=== PATIENT | female | born 1995 | race Caucasian/White ===

== ENCOUNTER 2023-10-21 04:53 | Emergency (ER) | payer MEDICARE, OTHER, SELFPAY ==
[2023-10-21 04:55] VITALS: BP 122/75
[2023-10-21 05:31] VITALS: BMI 27.6
[2023-10-21 05:57] VITALS: BP 114/82
[2023-10-21 06:00] VITALS: BP 108/76
[2023-10-21 06:06] LABS: ALT (SGPT) 22 U/L (0-35); AST (SGOT) 30 U/L (14-36); Albumin 4.3 g/dl (3.5-5.0); Alkaline Phosphatase 42 U/L (38-126); Blood Urea Nitrogen 15 mg/dl (7-17); Calcium 8.8 mg/dl (8.4-10.2); Carbon Dioxide 27 mmol/L (22-30); Chloride 105 mmol/L (98-107); Estimated Creatinine Clearance 116 ml/min; Glucose 96 mg/dl (70-99); Potassium 4.5 mmol/L (3.5-5.1); Sodium 135 mmol/L (135-145); Total Bilirubin 0.3 mg/dl (0.2-1.3); Total Protein 6.8 g/dl (6.3-8.2); eGFR > 60.00
--- NOTE | 2023-10-21 06:10 | ED.GENMED ---
History of Present Illness
General
Chief Complaint: Vaginal Bleeding
Source: patient and family
Exam Limitations: none
Time Seen by Provider: 10/21/23 06:04
Nursing documentation reviewed up to this point in time: agreed with
Travel History
Have you had any contact with someone who has COVID-19?: No
Do you have any symptoms of coronavirus? Fever > 100 degrees, chills, cough, shortness of breath, sore throat, loss of taste or smell, muscle aches, or headache?: No
History of Present Illness
History of Present Illness:
28 female 4 weeks presents with cramping and bleeding since yesterday's appointment see the [facility] next week
Past History
Past History
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
hypokalemia); Negative Asthma, HTN, Hypercholesterolemia or NIDDM
ED Past Surgical History: Appendectomy and Other
Social History
Tobacco: Non-smoker
Alcohol: Occasional
Drug: None
Personal: Single
Living: with family
Employment: Not employed
Family History
Family History: CAD and Other
Review of Systems
Review of Systems
All Other Systems: Not applicable
: Reports bleeding
Phy Exam
Physical Exam
Physical Exam:
Physical Exam
General: no apparent distress, not acutely ill
Neck: No jaw
Lungs: no acute respiratory distress.
Abdomen: Soft nontender
Neuro: alert and oriented. no focal neurological deficits
Skin: no rash
Psychiatric: well kept. interactive and cooperative
Extremities: no edema.
Course
Orders/Labs/Results
Orders:
Orders
10/21/23 05:42
Blood Group&Type Urgent
CMP [Comprehensive Metabolic Panel] Urgent
Complete Blood Count/With Diff Urgent
HCG,SERUM [Beta HCG Quantitative] Urgent
Is this a screen?: No
10/21/23 06:12
0.9% Sodium Chloride 1000 ml [Nss] 1,000 ml IV BOLUS
10/21/23 06:13
US W Transvaginal Urgent
Reason For Exam: pvb
Abnormal Lab Results
10/21/23
05:42
MPV 10.7 H fL
(7.4-10.4)
Monocytes % 9.4 H %
(1.7-9.3)
Eosinophils % 6.9 H %
(0-6)
10/21/23 05:42
10/21/23 05:42
Vital Signs
Initial and Last Documented VS:
Initial Vital Signs
Temp Pulse Resp BP Pulse Ox
97.7 F 55 16 122/75 100
10/21/23 04:55 10/21/23 04:55 10/21/23 04:55 10/21/23 04:55 10/21/23 04:55
Last Documented Vital Signs
Temp Pulse Resp BP Pulse Ox
97.7 F 55 16 113/76 100
10/21/23 04:55 10/21/23 04:55 10/21/23 04:55 10/21/23 09:13 10/21/23 09:15
MDM/Problems Addressed
Differential Diagnosis Includes:
ABD miscarriage ectopic early
MDM/Problems Addressed:
bleeding
*Critical Care Note
Total Time (30-74mins, 75-104mins- exclusive of procedures): Not Applicable
Update Note
Update Note:
7:53 AM type and Rh and beta quant noted
9:20 AM ultrasound report noted patient states her bleeding is improved reviewed with patient likely completed AB versus chemical tells me she had a positive test earlier this week at the doctor's office
ED Attending Note
-
Portions of this chart may have been created with voice recognition software.� Occasional wrong word or��sound alike� substitutions may have occurred due to the inherent limitations of voice recognition software.
Discharge Plan
Departure
Patient Disposition: Home (Routine Discharge)
Date of Disposition: 10/21/23
Time of Disposition: :22
Patient with high blood pressure during this ER visit?: No
Condition: Good
Discharge Problem:
Complete miscarriage
Instructions: Miscarriage (DC)
Prescriptions:
No Action
venlafaxine [Effexor XR] 150 MG capsule,extended release 24hr
325 mg PO DAILY
fexofenadine [Ary] 180 MG tablet
180 mg PO DAILY
gabapentin 300 MG capsule
900 mg PO HS
ferrous sulfate [FeroSul] 325 MG tablet
1 tab PO BID
multivitamin with folic acid [Tab-A-Jong] 1 TABLET tablet
1 tab PO DAILY
gabapentin 300 MG capsule
300 mg PO .QAM
spironolactone 50 MG tablet
50 mg PO DAILY
potassium chloride [Klor-Con M20] 20 MEQ tablet,ER particles/crystals
80 meq PO TID
levothyroxine 50 MCG tablet
50 mcg PO MOTUWETHFR
Patient Comments:
cyanocobalamin (vitamin B-12) 1,000 MCG tablet
1,000 mcg PO DAILY
cholecalciferol (vitamin D3) 1,000 UNITS tablet
2,000 units PO DAILY
alprazolam 0.5 MG tablet
0.5 mg PO Q6HPRN PRN (Reason: anxiety)
metaxalone 800 mg tablet
800 mg PO TID PRN (Reason: muscle pain) Qty: 20 0RF
Referrals:
Yamilex Mcfarland PA-C [Family Provider] - Next open appointment
Activity Restrictions/Additional Instructions:
Tylenol or ibuprofen for pain
Return to the ER if heavy bleeding or fever
Keep your appointment with your HEATING AND REFRIGERATION INSPECTOR
Interventions
Interventions:
*Risk Screen - Suicide Last Done: 10/21/23 04:55
*General Assessment Last Done: 10/21/23 05:31
*Neglect/Abuse Screening Last Done: 10/21/23 04:55
ED- Fall Risk Assessment Last Done: 10/21/23 04:55
*ED COVID-19 Vaccine History Last Done: 10/21/23 04:55
ED-Female Genitourinary Assessment Last Done: 10/21/23 05:32
Discharge Date and Time
Print Language: EQUATORIAL GUINEAN
[2023-10-21 06:14] LABS: % Basophils 0.6 % (0-2); % Eosinophils 6.9 % (0-6); % Immature Granulocytes 0.4 % (0-0.5); % Lymphocytes 25.1 % (20.5-51.1); % Monocytes 9.4 % (1.7-9.3); % Neutrophils 57.6 % (42.2-75.2); Absolute Eosinophils 0.4 10^3/uL (0-0.7); Absolute Lymphocytes 1.3 10^3/uL (1.2-3.4); Absolute Monocytes 0.5 10^3/uL (0.1-0.6); Absolute Neutrophils 2.9 10^3/uL (1.4-6.5); Hematocrit 40.9 % (37.0-47.0); Hemoglobin 13.9 g/dL (12.0-16.0); Mean Corpuscular Hgb 30.2 pg (27.0-31.0); Mean Corpuscular Volume 88.7 fL (81.0-99.0); Mean Platelet Volume 10.7 fL (7.4-10.4); Nucleated Red Blood Cells % 0 %; Platelet Count 210 10^3/uL (130-400); Red Blood Cell Count 4.61 10^6/uL (4.20-5.40); Red Cell Dist. Width 12.1 % (11.5-14.5); White Blood Cell Count 5.1 10^3/uL (4.8-10.8)
[2023-10-21] MEDS: NSS 1000 IV (06:31)
[2023-10-21 06:57] LABS: Beta HCG Quantitative < 2.39 mIU/ml
[2023-10-21 07:00] VITALS: BP 97/61
[2023-10-21 09:13] VITALS: BP 113/76
[2023-10-21] MEDS: MOTRIN 600 MG PO (09:53)
[2023-10-21 09:54] VITALS: BP 120/74
== END 2023-10-21 10:02 | disposition home or self-care (01) ==
LOC: EMR 04:53
PROVIDERS: Emergency Medicine; EMERGENCY PHYSICIAN Emergency Medicine; FAMILY PHYSICIAN Physician Assistant Medical
DX: O03.9 Complete or unspecified spontaneous abortion without complication (principal); G90.A Postural orthostatic tachycardia syndrome [POTS]; K21.9 Gastro-esophageal reflux disease without esophagitis; J45.909 Unspecified asthma, uncomplicated; K58.9 Irritable bowel syndrome, unspecified; M79.7 Fibromyalgia; E03.9 Hypothyroidism, unspecified; F41.9 Anxiety disorder, unspecified; F32.A Depression, unspecified; Z88.0 Allergy status to penicillin; Z88.2 Allergy status to sulfonamides; Z88.8 Allergy status to other drugs, medicaments and biological substances; Z91.048 Other nonmedicinal substance allergy status
CPT/HCPCS: 99284; 76801; 76817; 80053; 84702; 85025; 86900; 86901

== ENCOUNTER → 2024-05-15 07:06 | Outpatient (REF) | payer MEDICARE, OTHER, SELFPAY | LOC: MRI 07:06 | PROVIDERS: ATTENDING PHYSICIAN Orthopaedic Surgery | DX: M79.642 Pain in left hand (principal); M79.645 Pain in left finger(s) | CPT/HCPCS: 73218 ==

== ENCOUNTER 2025-03-23 15:53 | Observation (INO) | payer MEDICARE, OTHER, SELFPAY ==
[2025-03-23] VITALS (8 sets, daily range): BP systolic 99–125; BP diastolic 58–81; BMI 24.6
--- NOTE | 2025-03-23 09:59 | ED.GENMED ---
History of Present Illness
<ERA Worthington - Last Filed: 03/23/25 13:29>
General
Chief Complaint: Change in Mental Status
Source: patient
Exam Limitations: none
Time Seen by Provider: 03/23/25 09:41
Nursing documentation reviewed up to this point in time: agreed with
History of Present Illness
History of Present Illness:
29-year-old female with past medical history of Gitelman syndrome, POTS, questionable focal seizures ,, fibromyalgia presents to the ER for evaluation of confusion. Patient reports around 8 AM she was on the treadmill and suddenly fell confused.
She could not remember what she was doing or why she was there. She could not remember this morning's events. She called her mom and mom brought patient to the ER. She had no associated upper or lower extremity numbness tingling weakness. No
speech changes. She reports now she feels kind of in a brain fog. She still feels lightheaded sometimes. She reports for the past week she has had a headache which she thought was a tension headache had some neck discomfort. She had a little
congestion and had a mild sore throat.
Patient denies any recent trauma head injury. She reports she did have small amount of breakfast this morning.
She only drinks alcohol socially none recently.
Patient states that she used to have a neurologist Dr. Ceballos for questionable focal seizure diagnosis however has not had any issues with that recently. She was never on medicine for seizures.
Past History
<ERA Worthington - Last Filed: 03/23/25 13:29>
Past History
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
hypokalemia); Negative Asthma, HTN, Hypercholesterolemia or NIDDM
ED Past Surgical History: Appendectomy and Other
Social History
Tobacco: Non-smoker
Alcohol: Occasional
Drug: None
Personal: Single
Living: with family
Employment: Not employed
Family History
Family History: CAD and Other
Phy Exam
<ERA Worthington - Last Filed: 03/23/25 13:29>
General Physical Exam
General Presentation: no apparent distress
General age: appears stated age
General Skin: warm and dry
General Habitus: normal
General Mental: alert
General Hydration: appears well hydrated
ENT Exam
ENT Exam: EOMI
Eye Exam
Eye Exam: PERRL, EOMI and other (No nystagmus)
Cardiovascular Exam
Cardiovascular Exam: regular rate/rhythm, no murmur and normal peripheral pulses
Pulmonary Exam
Pulmonary Exam: lungs clear and no respiratory distress
Neurological Exam
Neurological Exam: alert, oriented x3, no motor deficits and no sensory deficits
[place] Coma Scale
Eye Opening: Spontaneous
Verbal Response: Oriented
Motor Response: Obeys Commands
GCS Total Score: 15
Musculoskeletal Exam
Musculoskeletal Exam: full ROM
Skin Exam
Skin Exam: normal color and warm/dry
Psychiatric Exam
Psychiatric Exam: normal mood/affect
<Elver Solis MD - Last Filed: 03/23/25 13:34>
[place] Coma Scale
GCS Total Score: 15
Course
<ERA Worthington - Last Filed: 03/23/25 13:29>
Orders/Labs/Results
Orders:
Orders
03/23/25 09:58
CT Head W/o Iv Contrast Urgent
Comment:
Reason For Exam: change in ms
03/23/25 09:59
Electrocardiogram (*1) Stat
Reason for Study: Abdominal Pain
Cardiac Monitoring- Treatment ONCE
EKG- Treatment ONCE
IV Insert/Care/Rem.- Treatment PRN
0.9% Sodium Chloride 1000 ml [Nss] 1,000 ml IV BOLUS
Test Result ONCE
03/23/25 10:31
Basic Metabolic Panel Urgent
Complete Blood Count/With Diff Urgent
HCG, Serum Qualitative Screen Urgent
03/23/25 10:50
COVID-19 Antigen Urgent
Source: Nasal Swab
Influenza A+B Rapid Molecular Urgent
ERASMO Source: Nasal Swab
Specimen Description:
03/23/25 10:52
Urinalysis Reflex To Culture Urgent
Date Specimen was Collected: 03/23/25
Time Specimen was Collected: 10:52
03/23/25 11:40
Add On- LAB Urgent
Tests Added?: [email or web address]
03/23/25 11:52
Magnesium Urgent
Comment: ADD ON
Potassium Urgent
03/23/25 13:16
Potassium Chloride [KCl] 40 meq PO NOW STA
Potassium Chloride [KCl] 40 meq 0.9% Sodium Chloride 250 ml [Nss] 250 ml IV NOW
03/23/25 13:19
Magnesium Sulfate 2 Gram/50 ml [Magnesium Sulfate] 2 gram in 50 ml IV NOW
Abnormal Lab Results
03/23/25 03/23/25
10:31 11:52
Monocytes % 10.4 H %
(1.7-9.3)
Eosinophils % 6.6 H %
(0-6)
Sodium 128 L mmol/L
(135-145)
Potassium 2.9 L mmol/L
(3.5-5.1)
Magnesium 1.4 L mg/dl
(1.6-2.3)
03/23/25 10:31
03/23/25 11:52
Vital Signs
Initial and Last Documented VS:
Initial Vital Signs
Temp Pulse Resp BP Pulse Ox
98.3 F 55 17 125/81 99
03/23/25 08:45 03/23/25 08:45 03/23/25 08:45 03/23/25 08:45 03/23/25 08:45
Last Documented Vital Signs
Temp Pulse Resp BP Pulse Ox
98.3 F 43 18 105/68 99
03/23/25 08:49 03/23/25 12:00 03/23/25 11:45 03/23/25 12:00 03/23/25 10:16
Embroidery Operator consulted with Physician
Embroidery Operator consulted with physician?: Yes
Name of Physician Consulted: Will
<Elver Solis MD - Last Filed: 03/23/25 13:34>
Orders/Labs/Results
Orders:
Orders
03/23/25 09:58
CT Head W/o Iv Contrast Urgent
Comment:
Reason For Exam: change in ms
03/23/25 09:59
Electrocardiogram (*1) Stat
Reason for Study: Abdominal Pain
Cardiac Monitoring- Treatment ONCE
EKG- Treatment ONCE
IV Insert/Care/Rem.- Treatment PRN
0.9% Sodium Chloride 1000 ml [Nss] 1,000 ml IV BOLUS
Test Result ONCE
03/23/25 10:31
Basic Metabolic Panel Urgent
Complete Blood Count/With Diff Urgent
HCG, Serum Qualitative Screen Urgent
03/23/25 10:50
COVID-19 Antigen Urgent
Source: Nasal Swab
Influenza A+B Rapid Molecular Urgent
ERASMO Source: Nasal Swab
Specimen Description:
03/23/25 10:52
Urinalysis Reflex To Culture Urgent
Date Specimen was Collected: 03/23/25
Time Specimen was Collected: 10:52
03/23/25 11:40
Add On- LAB Urgent
Tests Added?: [email or web address]
03/23/25 11:52
Magnesium Urgent
Comment: ADD ON
Potassium Urgent
03/23/25 13:16
Potassium Chloride [KCl] 40 meq PO NOW STA
Potassium Chloride [KCl] 40 meq 0.9% Sodium Chloride 250 ml [Nss] 250 ml IV NOW
03/23/25 13:19
Magnesium Sulfate 2 Gram/50 ml [Magnesium Sulfate] 2 gram in 50 ml IV NOW
Abnormal Lab Results
03/23/25 03/23/25
10:31 11:52
Monocytes % 10.4 H %
(1.7-9.3)
Eosinophils % 6.6 H %
(0-6)
Sodium 128 L mmol/L
(135-145)
Potassium 2.9 L mmol/L
(3.5-5.1)
Magnesium 1.4 L mg/dl
(1.6-2.3)
03/23/25 10:31
03/23/25 11:52
Vital Signs
Initial and Last Documented VS:
Initial Vital Signs
Temp Pulse Resp BP Pulse Ox
98.3 F 55 17 125/81 99
03/23/25 08:45 03/23/25 08:45 03/23/25 08:45 03/23/25 08:45 03/23/25 08:45
Last Documented Vital Signs
Temp Pulse Resp BP Pulse Ox
98.3 F 43 18 105/68 99
03/23/25 08:49 03/23/25 12:00 03/23/25 11:45 03/23/25 12:00 03/23/25 10:16
<ERA Worthington - Last Filed: 03/23/25 13:29>
MDM/Problems Addressed
Differential Diagnosis Includes:
Not limited to electrolyte abnormality, less likely TIA
MDM/Problems Addressed:
As documented patient is a 29-year-old female with history of Gitelman syndrome years ago has not needed to see nephrology recently as her electrolytes have been normal. She presented today for an episode of confusion. As document she was on the
treadmill at the gym and cannot member why she was there and cannot remember this morning. She presented awake alert no acute distress with no neurological deficits. She does have a history of questionable focal seizures however again has not seen
neurology in years and is not on medicine. No seizure activity today. Patient presents with abnormal electrolytes sodium low at 128 potassium of 2.9 with a low magnesium 1.4. No EKG changes. Case discussed ED physician evaluated patient case
discussed with nephrology will order IV and oral potassium along with magnesium will admit for overnight lab recheck/continued monitoing.
Chronic conditions affecting care:
History of Gitelman syndrome
<ERA Worthington - Last Filed: 03/23/25 13:29>
*Radiology
Radiology exam reviewed: radiology read reviewed
*Pulse Oximetry
SaO2: 98
Oxygen Mode of Delivery: Room air
Patient hypoxic: no
*EKG
Interpreted by ED Provider?: Yes
Heart Rate: 52
Rate: normal
Rhythm: sinus
Ischemia: non-specific ST changes
*Critical Care Note
Total Time (30-74mins, 75-104mins- exclusive of procedures): Not Applicable
ED Attending Note
<ERA Worthington - Last Filed: 03/23/25 13:29>
-
Portions of this chart may have been created with voice recognition software.� Occasional wrong word or��sound alike� substitutions may have occurred due to the inherent limitations of voice recognition software.
<Elver Solis MD - Last Filed: 03/23/25 13:34>
ED Attending Note
Patient seen and examined by attending physician: Yes
I performed the substantive portion of visit, reviewed & personally made and approve the management plan that is documented in note by myself or TIMOTHY.: Yes
ED Attending Note:
29-year-old female episode of confusion or fogginess while working out today. Has had a few other episodes this week. Also complaining of some general headache. No double vision no speech issues no other complaints. Patient has a syndrome that
causes low potassium low magnesium and low sodium. Gettleman syndrome. On exam patient is nontoxic in no distress. Normocephalic atraumatic. No respiratory distress heart regular rate and rhythm. Warm and dry. Perfusing well. Nonfocal. No
nystagmus. Extraocular muscles intact. Clinically stable. Doubt seizure issues. Does have some electrolyte abnormalities that need addressing. Will discuss with nephrology.
Discharge Plan
Departure
Patient Disposition: Admit
Date of Disposition: 03/23/25
Time of Disposition: 13:26
Admit to: Telemetry
Admit to doctor: hospitalist
Presentation/result/management discussed w/ accepting MD/DO: Hospitalist
Patient with high blood pressure during this ER visit?: No
Condition: Fair
Covid-19: Not Applicable
Discharge Problem:
Acute hypokalemia, Hypomagnesemia, Acute hyponatremia
Prescriptions:
No Action
venlafaxine [Effexor XR] 150 MG capsule,extended release 24hr
325 mg PO DAILY
fexofenadine [Ary] 180 MG tablet
180 mg PO DAILY
gabapentin 300 MG capsule
900 mg PO HS
ferrous sulfate [FeroSul] 325 MG tablet
1 tab PO BID
multivitamin with folic acid [Tab-A-Jong] 1 TABLET tablet
1 tab PO DAILY
gabapentin 300 MG capsule
300 mg PO .QAM
spironolactone 50 MG tablet
50 mg PO DAILY
potassium chloride [Klor-Con M20] 20 MEQ tablet,ER particles/crystals
80 meq PO TID
levothyroxine 50 MCG tablet
50 mcg PO MOTUWETHFR
Patient Comments:
cyanocobalamin (vitamin B-12) 1,000 MCG tablet
1,000 mcg PO DAILY
cholecalciferol (vitamin D3) 1,000 UNITS tablet
2,000 units PO DAILY
alprazolam 0.5 MG tablet
0.5 mg PO Q6HPRN PRN (Reason: anxiety)
metaxalone 800 mg tablet
800 mg PO TID PRN (Reason: muscle pain) Qty: 20 0RF
Referrals:
Yamilex Mcfarland PA-C [Family Provider, Family Practice]
Interventions
Interventions:
*Risk Screen - Suicide Last Done: 03/23/25 08:49
*Neglect/Abuse Screening Last Done: 03/23/25 08:49
*ED- Fall Risk Assessment Last Done: 03/23/25 13:05
*ED COVID-19 Vaccine History Last Done: 03/23/25 13:05
*ED Influenza Vaccine History Last Done: 03/23/25 13:05
ED- Neurological Assessment Last Done: 03/23/25 09:38
ED Swallowing Screen Last Done: 03/23/25 12:09
Discharge Date and Time
Print Language: FAROESE
[2025-03-23 10:52] LABS: HCG, Serum Qualitative Screen Negative
[2025-03-23 10:56] LABS: Hematocrit 39.2 % (37.0-47.0); Hemoglobin 13.2 g/dL (12.0-16.0); Mean Corp Hgb Conc. 33.7 g/dL (33.0-37.0); Mean Corpuscular Volume 89.1 fL (81.0-99.0); Nucleated Red Blood Cells % 0 %; Platelet Count 216 10^3/uL (130-400); Red Cell Dist. Width 12.1 % (11.5-14.5)
[2025-03-23 10:59] LABS: Blood Urea Nitrogen 13 mg/dl (7-17); Calcium 8.7 mg/dl (8.4-10.2); Carbon Dioxide 27 mmol/L (22-30); Chloride 98 mmol/L (98-107); Estimated Creatinine Clearance > 125 ml/min; Glucose 98 mg/dl (70-99); Sodium 128 mmol/L (135-145); eGFR > 60.00
[2025-03-23 11:13] LABS: Urine Character Clear (Clear)
[2025-03-23] MEDS: NSS 1000 IV ×2 (11:16→18:21)
[2025-03-23 11:23] LABS: COVID-19 Antigen Negative (Negative)
[2025-03-23 12:26] LABS: Magnesium 1.4 mg/dl (1.6-2.3); Potassium 2.9 mmol/L (3.5-5.1)
[2025-03-23] MEDS: KCL 40 MEQ PO (13:25)
[2025-03-23] MEDS: MAGNESIUM SULFATE 50 IV (13:25)
--- NOTE | 2025-03-23 13:58 | HPS.HSE ---
Addendum entered and electronically signed by Delphine Chávez MD 03/23/25 16:20:
This is an addendum to the H&P written by Zofia Hill on 03/23/2025. �Patient seen and examined independently with DIRECTOR PRODUCT MANAGEMENT.
29-year-old female history of Gettleman syndrome, fibromyalgia, POTS disease, questionable focal seizures, restless leg syndrome, GERD, gastric venous malformations in 2018, anemia, premature ovarian failure, eczema, presenting with headache and
cramping in the legs for the past week. �[place] foggy in the gym today with headache. �Recently stopped taking liquid IV electrolyte packets and decreased sodium intake.
Vital signs showed bradycardia down to 40s.
Labs showed potassium 2.9, magnesium 1.4. �Sodium 128.
Patient with hyponatremia, hypokalemia and hypomagnesemia secondary to Gettleman syndrome and recent reduction of electrolyte intake. �IV fluids, potassium, magnesium repletion. �Nephrology consulted. �Continue spironolactone. �Asymptomatic
bradycardia likely secondary to hypokalemia, monitor with electrolyte repletion.
Original Note:
Family Physician
-
Family Physician: Yamilex Mcfarland
Chief Complaint
-
Headache, fogginess
History of Present Illness
29-year-old female with history of Gittleman syndrome who has been self managing typically with electrolyte packets which she recently stopped she also decreased her sodium intake due to reported history of POTS. She reports around 8 AM while on
the treadmill she suddenly felt confused could not remember what she was doing. She had her mother bring her to the ER for evaluation. She states for the past week she has had tension headache some nasal congestion mild sore throat. She reports
after receiving magnesium in the ER her headache is starting to go away. She denies fever, chills, chest pain, palpitations, cough, shortness of breath, abdominal pain, nausea, vomiting, diarrhea, urinary symptoms.
Other past medical history includes questionable focal seizures,. Fibromyalgia,Restless leg syndrome, GERD, Gastric venous malformations 2018/GI bleed, Anemia, Premature ovarian failure, Eczema.
Medical History
Past Medical History
Past Medical History: Reports Other
Additional Past Medical History:
gittleman syndrome
Fibromyalgia
POTS
Questionable history of seizures focal
Restless leg syndrome
GERD
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
Anemia
Premature ovarian failure
Eczema
Past Surgical History: Reports Other
Additional Past Surgical History:
Recent tooth extraction
Right chest wall port placement with removal
Septorhinoplasty with sinus surgery 02/05/2015, July 2015
Right knee arthroplasty 2016
Benign lumps removed right breast
Left knee arthroscopy September 2016
Social History
Tobacco: Non-smoker
Alcohol: None
Personal: Single
Living: With Family
Employment: Employed
Family History
Family History: Not pertinent
Allergies / Home Medications
Allergies reflects when Allergies were last updated in [facility].
Home Medications with original date entered in [facility]
Allergy/Medication List:
Allergies
Allergy/AdvReac Type Severity Reaction Status Date / Time
adhesive Allergy Hives Verified 03/23/25 08:52
metoclopramide HCl (From Allergy torticolis/ Verified 03/23/25 08:52
Reglan) DYSKENESIA
Penicillins Allergy Hives Verified 03/23/25 08:52
povidone-iodine (From Allergy Rash Verified 03/23/25 08:52
Betadine)
Sulfa (Sulfonamide Allergy Hives Verified 03/23/25 08:52
Antibiotics)
sulfamethoxazole (From Allergy Hives Verified 03/23/25 08:52
Bactrim DS)
Home Medications
Lactobac no.2-Bifidobac no.1-S. thermo 112.5 billion cell capsule (Visbiome) 1 cap PO DAILY 03/23/25
chlorpheniramine-pseudoephedrine 2 mg-30 mg/5 mL oral liquid 10 ml PO DAILYPRN PRN cold 03/23/25
ferrous sulfate 325 mg (65 mg iron) tablet 325 mg PO DAILY 03/23/25
loratadine 10 mg tablet (Claritin) 10 mg PO DAILY 03/23/25
omega 5-yei-vgd-fish oil 1,000 mg (120 mg-180 mg) capsule (Fish Oil) 2 cap PO DAILY 03/23/25
therapeutic multivitamin 1 tab PO DAILY 03/23/25
Review of Systems
-
History Source: Patient
A 12 point ROS was completed and negative except as noted: Yes
Constitutional: Reports Fatigue; Denies Fever or Chills
EENT: Reports Sore Throat and Runny Nose
Respiratory: Denies Cough or Trouble Breathing
Cardiac: Denies Chest Pain, Diaphoresis, Palpitations or Syncope
Abdomen/GI: Denies Abdominal Pain, Nausea, Vomiting or Diarrhea
: Denies Dysuria, Frequency or Flank Pain
Musculoskeletal: Denies Joint Pain, Joint Swelling or Muscle Pain
Skin: Reports Other (Cramps to legs); Denies Itching or Rash
Neurological: Reports Dizzy, Headache and Weakness
Endocrine: Reports No Symptoms
Hematologic/Lymphatic: Reports No Symptoms
Psych: Reports Calm
Physical Exam
Vital Signs
Vital Signs
Temp Pulse Resp BP Pulse Ox
98.3 F 43 18 105/68 99
03/23/25 08:49 03/23/25 12:00 03/23/25 11:45 03/23/25 12:00 03/23/25 10:16
Physical Exam
General: Comfortable and Conversant; No Fever or Chills
HEENT: NormoCephalic, Anicteric, Moist mucous membranes, PERRLA, [place] Conjunctivae, No Ptosis, Nose Appears Normal and Neck Nontender; No Pharyngeal Erythema
Respiratory: Clear; No Wheezes, Rales or Rhonchi
Cardiac: S1/S2 and Bradycardia; No Murmur, Rub, Gallop or Peripheral Edema
Breast: Deferred by me
GI: Soft, Non Tender, Non Distended, Normal Bowel Sounds and No Hepatosplenomegaly
Genito-urinary: Deferred by me
Musculoskeletal: No Clubbing, No Cyanosis and No Edema
Skin: Warm and Dry; No Rash or Jaundice
Neuro: AO x 3, No Motor Deficits, Nonfocal/grossly intact, Cranial Nerves Intact and No Sensory Deficits; No Slurred Speech, Facial Droop, Tremors or Sedated
Psych: Calm
Laboratory Results
-
03/23/25 10:31
03/23/25 11:52
Laboratory Results
Total Bilirubin Cancelled 03/23/25 10:31
AST Cancelled 03/23/25 10:31
ALT Cancelled 03/23/25 10:31
Alkaline Phosphatase Cancelled 03/23/25 10:31
Impression/Plan
-
Impression/plan:
Admit to telemetry
#Acute hypokalemia history of Gittleman syndrome
K2.9
40 KCl p.o. now, KCl rider 40 mEq
Check BMP in a.m.
-Dr. Chuyita yates at bedside
EKG: Sinus bradycardia 52 bpm QTc 437 MS otherwise normal
#Acute hyponatremia in setting of Gittleman syndrome
NA 128
-IV NSS
-Follow BMP per nephro
#Acute hypomagnesemia
Mag 1.4
2 g mag rider
-Repeat mag in a.m.
#Acute bradycardia asymptomatic
HR 43 to 53 bpm
-Will replete magnesium, potassium and monitor heart rate
#Recent sinus pressure history of sinus disease
Continue Claritin 10 mg daily recommend at home Nasonex
#Migraine headaches
- Current headache resolved with IV magnesium
- Tylenol as needed
#POTS syndrome
#History of questionable focal seizures
Follows with Dr. Lin neri
#Hypothyroidism
#Shantelle thyroiditis
- Continue levothyroxine
#Anxiety/depression
- Continue Effexor, Xanax as needed
#Fibromyalgia
- Continue gabapentin
Other PMH:
Restless leg syndrome
GERD
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
Anemia iron deficiency, continue ferrous sulfate
Premature ovarian failure
Eczema
DVT prophylaxis
SCDs
Full code
[2025-03-23] MEDS: KCL 270 MEQ IV (14:01)
--- NOTE | 2025-03-23 14:18 | W.CON.NEPH ---
Addendum entered and electronically signed by Liliam Boogie MD 03/23/25 20:36:
correction:
no FAZRANA, cr normal
consider spironolactone if potassium difficult to manage
Original Note:
Consultation
-
Date/Time Consultation Requested: 03/23/25 1345
Date/Time Consultation Performed: 03/23/25 1418
Requesting Provider: Zofia GIRARD
Performing Provider: Liliam Manriquez
Reason for Consultation: FARZANA, hypokalemia, hypomagnesemia
Medical History
-
Chief Complaint: Confused
History of Present Illness:
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 She reports around 8 AM while on the treadmill she
suddenly felt confused could not remember what she was doing. She had her mother bring her to the ER for evaluation. She states for the past week she has had tension headache some nasal congestion mild sore throat took antihistamines that gave her
some dry mouth. Reportedly -2weeks ago she started decreasing her salt intake and electrolyte packets trying to have heart healthy diet for cholesterol control. She denies fever, chills, chest pain, palpitations, cough, shortness of breath,
abdominal pain, nausea, vomiting, diarrhea, urinary symptoms.
He labs noted cr 1.4, k 2.9, mg 1.4 and sodium 128. Labs on 03/07 were na 134, k normal and cr 0.7. Nephrology consulted for further eval.
Past Medical History
gittleman syndrome
Fibromyalgia
POTS
Questionable history of seizures focal
Restless leg syndrome
GERD
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
Anemia
Premature ovarian failure
Eczema
h/o bruno oxalate k stone
Past Surgical History: Other (Recent tooth extraction Right chest wall port placement with removal Septorhinoplasty with sinus surgery 02/05/2015, July 2015 Right knee arthroplasty 2017 Benign lumps removed right breast Left knee arthroscopy
September 2016)
Social History
Tobacco: Non-Smoker
Alcohol: None
Drug: None
Family History
Family History: Not Pertinent
Allergies / Home Medications
Allergy/AdvReac Type Severity Reaction Status Date / Time
adhesive Allergy Hives Verified 03/23/25 08:52
metoclopramide HCl (From Allergy torticolis/ Verified 03/23/25 08:52
Reglan) DYSKENESIA
Penicillins Allergy Hives Verified 03/23/25 08:52
povidone-iodine (From Allergy Rash Verified 03/23/25 08:52
Betadine)
Sulfa (Sulfonamide Allergy Hives Verified 03/23/25 08:52
Antibiotics)
sulfamethoxazole (From Allergy Hives Verified 03/23/25 08:52
Bactrim DS)
�Medication �Instructions �Recorded �Confirmed �Type
fexofenadine 180 mg tablet 180 mg PO DAILY 09/04/14 04/08/21 History
(Ary)
venlafaxine 150 mg 325 mg PO DAILY 09/04/14 04/08/21 History
capsule,extended release 24 hr
(Effexor XR)
gabapentin 300 mg capsule 900 mg PO HS 06/15/15 04/08/21 History
ferrous sulfate 325 mg (65 mg 1 tab PO BID 07/07/15 04/08/21 History
iron) tablet (FeroSul)
multivitamin with folic acid 400 1 tab PO DAILY 08/05/15 04/08/21 History
mcg tablet (Tab-A-Jong)
gabapentin 300 mg capsule 300 mg PO .QAM 09/22/16 04/08/21 History
spironolactone 50 mg tablet 50 mg PO DAILY 01/25/17 04/08/21 History
potassium chloride 20 mEq 80 meq PO TID 03/06/17 04/08/21 History
tablet,extended
release(part/cryst) (Klor-Con M)
levothyroxine 50 mcg tablet 50 mcg PO MOTUWETHFR 04/20/17 04/08/21 History
cholecalciferol (vitamin D3) 25 2,000 units PO DAILY 11/14/17 04/08/21 History
mcg (1,000 unit) tablet
cyanocobalamin (vitamin B-12) 1,000 mcg PO DAILY 11/14/17 04/08/21 History
1,000 mcg tablet
alprazolam 0.5 mg tablet 0.5 mg PO Q6HPRN PRN anxiety 04/08/21 04/08/21 History
metaxalone 800 mg tablet 800 mg PO TID PRN muscle pain #20 04/06/22 Rx
tabs
Review of Systems
-
All other systems: Negative unless noted
Physical Exam
Vital Signs
Vital Signs
Temp Pulse Resp BP Pulse Ox
98.3 F 43 18 105/68 99
03/23/25 08:49 03/23/25 12:00 03/23/25 11:45 03/23/25 12:00 03/23/25 10:16
Lab Results
WBC 5.5 10^3/uL (4.8-10.8) 03/23/25 10:31
RBC 4.40 10^6/uL (4.20-5.40) 03/23/25 10:31
Hgb 13.2 g/dL (12.0-16.0) 03/23/25 10:31
Hct 39.2 % (37.0-47.0) 03/23/25 10:31
Plt Count 216 10^3/uL (130-400) 03/23/25 10:31
Sodium 128 mmol/L (135-145) L 03/23/25 10:31
Potassium 2.9 mmol/L (3.5-5.1) L 03/23/25 11:52
Chloride 98 mmol/L (98-107) 03/23/25 10:31
Carbon Dioxide 27 mmol/L (22-30) 03/23/25 10:31
BUN 13 mg/dl (7-17) 03/23/25 10:31
Creatinine 0.6 mg/dL (0.6-1.0) 03/23/25 10:31
eGFR > 60.00 03/23/25 10:31
Glucose 98 mg/dl (70-99) 03/23/25 10:31
Calcium 8.7 mg/dl (8.4-10.2) 03/23/25 10:31
Albumin Cancelled 03/23/25 10:31
Physical Exam
General: Awake, Alert, Oriented, AOx3 and No Distress
HEENT: EOMI, Anicteric, Conjunctivae Clear and Facial Symmetry
Respiratory: Clear, Normal Excursion and Nonlabored Respirations
Cardiac: S1/S2 and Regular Rate/Rhythm
Breast: Deferred by me
Abdomen: Soft, Nontender and Nondistended
Musculoskeletal: No Cyanosis and No Edema
Skin: No Rash
Neuro: Nonfocal/Grossly Intact
Psych: Mood/afflect pleasant, Insight/judgement good and Appropriate
Data Reviewed
-
Labs: Labs Reviewed by me, Discussed with Physician and Discussed with Patient
Assessment/Plan
-
IMP:
Acute confusion
hypokalemia history of Gittleman syndrome
hyponatremia in setting of Gittleman syndrome
hypomagnesemia
bradycardia asymptomatic
Migraine headaches
POTS syndrome
History of questionable focal seizures
Hypothyroidism
Shantelle thyroiditis
Anxiety/depression
Fibromyalgia
Restless leg syndrome
GERD
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
Anemia
Premature ovarian failure
Eczema
PLan:
A/w acute confusion , noted multiple electrolyte imbalances with known Gitelman synd
cont replace k and recheck later today
repalce mg as well
s/p 1 lit NS , cont gentle IVF
FARZANA -suspect prerenal with bland UA
suspect symp exaggerated since she changed her diet several days ago
no need salt restriction
consider Spironolactone if sodium difficult to manage
d/w pt and primary
--- NOTE | 2025-03-23 15:19 | EDCM ---
CM reviewed chart and met with pt bedside in ED. Lives alone in 2 story [facility], [address]. Has first floor half bath, full flight to second floor bedroom and full bath.
Independent in ADLs, personal care and ambulation at baseline. No DME.
Confirms prescription coverage.
GTZ reviewed and signed, copy left with pt.
No hx VN or SNF
PCP: Yamilex Mcfarland
Pharmacy: [facility]
Anticipate discharge home, CM will continue to follow for any discharge planning needs.
--- NOTE | 2025-03-23 18:03 | PTCARENOTE ---
Pt arrived from ED at 1730. Pt walked from stretcher to bed. VS taken, connected to tele box #5, assessment completed, and pt oriented to room. Pt resting comfortably with family at bedside, no current complaints, plan of care ongoing.
[2025-03-23 21:43] LABS: Blood Urea Nitrogen 13 mg/dl (7-17); Calcium 8.8 mg/dl (8.4-10.2); Carbon Dioxide 24 mmol/L (22-30); Chloride 110 mmol/L (98-107); Estimated Creatinine Clearance 115 ml/min; Glucose 105 mg/dl (70-99); Potassium 4.3 mmol/L (3.5-5.1); Sodium 138 mmol/L (135-145); eGFR > 60.00
[2025-03-24 03:47] VITALS: BP 101/57
[2025-03-24] MEDS: NSS 1000 IV (04:28)
--- NOTE | 2025-03-24 04:32 | PTCARENOTE ---
Heparin stopped as ordered.
[2025-03-24 05:51] LABS: Hematocrit 38.9 % (37.0-47.0); Hemoglobin 12.8 g/dL (12.0-16.0); Mean Corp Hgb Conc. 32.9 g/dL (33.0-37.0); Mean Corpuscular Volume 91.7 fL (81.0-99.0); Nucleated Red Blood Cells % 0 %; Platelet Count 212 10^3/uL (130-400); Red Cell Dist. Width 12.4 % (11.5-14.5)
[2025-03-24 06:16] LABS: ALT (SGPT) 17 U/L (0-35); AST (SGOT) 22 U/L (14-36); Albumin 3.8 g/dl (3.5-5.0); Alkaline Phosphatase 38 U/L (38-126); Blood Urea Nitrogen 13 mg/dl (7-17); Calcium 8.6 mg/dl (8.4-10.2); Carbon Dioxide 25 mmol/L (22-30); Chloride 110 mmol/L (98-107); Estimated Creatinine Clearance 115 ml/min; Glucose 91 mg/dl (70-99); Magnesium 2.2 mg/dl (1.6-2.3); Potassium 4.5 mmol/L (3.5-5.1); Sodium 139 mmol/L (135-145); Total Protein 6.1 g/dl (6.3-8.2); eGFR > 60.00
[2025-03-24 07:30] VITALS: BP 118/76
[2025-03-24] MEDS: CLARITIN 10 MG PO (08:24)
[2025-03-24] MEDS: FEOSOL 325 MG PO (08:24)
[2025-03-24] MEDS: VISBIOME 1 CAP PO (08:24)
[2025-03-24] MEDS: THERAGRAN 1 TABLET PO (08:24)
--- NOTE | 2025-03-24 08:44 | W.PN.HOSP.TC ---
Today's Communication/Plan
-
Discharge today
Assessment / Plan
Assessment / Plan
#Acute hypokalemia history of Gittleman syndrome
Appreciate nephrology input, resolved status post IV and oral repletion
Medically stable for discharge, patient needs repeat BMP, Mg level checked with her PCP in 1 week
Patient counseled to resume her electrolyte packages
#Acute hyponatremia in setting of Gittleman syndrome
Sodium 128 upon admission
Sodium now normal with IV fluids
#Acute hypomagnesemia
Repleted and resolved
#Acute bradycardia asymptomatic
HR 43 to 53 bpm
EKG showing sinus bradycardia, T wave inversion in anterior leads, otherwise normal
#Recent sinus pressure history of sinus disease
Continue Claritin 10 mg daily recommend at home Nasonex
#Migraine headaches
- Headache resolved with IV magnesium
- Tylenol as needed
#POTS syndrome
#History of questionable focal seizures
Follows with Dr. Lin neri
#Hypothyroidism
#Shantelle thyroiditis
- Continue levothyroxine
#Anxiety/depression
- Continue Effexor, Xanax as needed
#Fibromyalgia
- Continue gabapentin
Other PMH:
Restless leg syndrome
GERD
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
Anemia iron deficiency, continue ferrous sulfate
Premature ovarian failure
Eczema
DVT prophylaxis-SCDs
Full code
Physical Exam
General: No acute distress
HEENT: Normocephalic, Atraumatic, EOMI, MMM
Respiratory: Clear to Auscultation bilaterally
Cardiac: Normal S1/S2, Regular Rate and Rhythm
GI: Soft, Nontender, Nondistended, Normal Bowel Sounds
Extremities: No Clubbing, Cyanosis, or Edema
Neuro: Nonfocal/Grossly Intact
Anticipated Discharge: Today
Subjective/Interval History
-
Date of Service: March 24, 2025
Patient reports fogginess, muscle cramps all resolved. She feels back to normal. Denies chest pain, denies shortness of breath. No fever, no vomiting.
Objective Data
-
Labs:
Laboratory Results
03/23/25 03/24/25
21:08 05:14
WBC 4.4 L
Hgb 12.8
Hct 38.9
Plt Count 212
Sodium 138 D 139
Potassium 4.3 D 4.5
Chloride 110 H 110 H
Carbon Dioxide 24 25
BUN 13 13
Creatinine 0.7 0.7
Glucose 105 H 91
Calcium 8.8 8.6
Total Bilirubin 0.1 L
AST 22
ALT 17
Alkaline Phosphatase 38
Vital Signs:
Vital Signs
Temp Pulse Resp BP Pulse Ox
97.8 F 57 17 118/76 100
03/24/25 07:30 03/24/25 07:30 03/24/25 07:30 03/24/25 07:30 03/24/25 07:30
I&O
03/23/25 03/24/25 03/25/25
06:59 06:59 06:59
Intake Total 980 / 980
Balance 980 / 980
--- NOTE | 2025-03-24 09:51 | W.PN.NEPH.PH ---
Addendum entered and electronically signed by Rivera Kaur MD 03/24/25 13:56:
I agree with the resident's note
I would recommend outpatient genetic testing in regards to Gitleman's.
It does not appear that she was on spironolactone.
She may follow-up with our office again at her discretion.
Original Note:
Today's Communication / Plan
-
Stable for discharge. Continue electrolyte supplements outpatient.
Assessment/Plan
-
IMP:
Acute confusion
hypokalemia history of Gittleman syndrome
hyponatremia in setting of Gittleman syndrome
hypomagnesemia
bradycardia asymptomatic
Migraine headaches
POTS syndrome
History of questionable focal seizures
Hypothyroidism
Shantelle thyroiditis
Anxiety/depression
Fibromyalgia
Restless leg syndrome
GERD
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
Anemia
Premature ovarian failure
Eczema
PLan:
Magnesium and potassium adequately replaced. Sodium normalized with NSS.
- Okay to stop IVF.
- Encourage to have nephrology genetic testing if not already done
- Acute electrolyte abnormalities precipitated by dietary change. She should resume daily electrolyte supplements which has kept electrolytes stable for years.
- Stable for discharge
-
-
Date of Service: March 24, 2025
CC / HPI / ROS
-
Diagnosed with Gitelman syndrome 10 years ago and at the time required a port with IV infusions. She has been stable without electrolyte problems for several years just by daily use of electrolyte packets (Liquid IV), adequate hydration, and a
generally healthy/active lifestyle. Lipid tests in February showed mildly elevated cholesterol level and she was prescribed a heart healthy diet. This was when she stopped taking her electrolytes in line with reducing sodium intake for a heart
healthy diet. She believes she started to feel mildly unwell shortly after this change. Over the past week, her symptoms started to worsen as described in HPI.
She reports resolution of her symptoms and feels well now.
Labs
-
Labs:
WBC 4.4 10^3/uL (4.8-10.8) L 03/24/25 05:14
RBC 4.24 10^6/uL (4.20-5.40) 03/24/25 05:14
Hgb 12.8 g/dL (12.0-16.0) 03/24/25 05:14
Hct 38.9 % (37.0-47.0) 03/24/25 05:14
Plt Count 212 10^3/uL (130-400) 03/24/25 05:14
Sodium 139 mmol/L (135-145) 03/24/25 05:14
Potassium 4.5 mmol/L (3.5-5.1) 03/24/25 05:14
Chloride 110 mmol/L (98-107) H 03/24/25 05:14
Carbon Dioxide 25 mmol/L (22-30) 03/24/25 05:14
BUN 13 mg/dl (7-17) 03/24/25 05:14
Creatinine 0.7 mg/dL (0.6-1.0) 03/24/25 05:14
eGFR > 60.00 03/24/25 05:14
Glucose 91 mg/dl (70-99) 03/24/25 05:14
Calcium 8.6 mg/dl (8.4-10.2) 03/24/25 05:14
Albumin 3.8 g/dl (3.5-5.0) 03/24/25 05:14
Physical Exam
-
Vital Signs:
Vital Signs
Temp Pulse Resp BP Pulse Ox
97.8 F 57 17 118/76 100
03/24/25 07:30 03/24/25 07:30 03/24/25 07:30 03/24/25 07:30 03/24/25 07:30
Cardiovascular:: Regular rate and rhythm
Respiratory:: Bilateral: CTA
Abdomen:: Nontender and Soft
Bowel Sounds:: Normal
Extremity Edema:: None: Bilateral:
[2025-03-24 11:04] VITALS: BP 111/57
--- NOTE | 2025-03-24 11:10 | W.DCSUMMARY ---
Discharge Summary
Discharge Data
Date of Admission: 03/23/25
Date of Discharge: 03/24/25
-
Pending Results: No
Hospital Course
Discharge diagnosis:
Acute hypokalemia
Acute hyponatremia
Acute hypomagnesemia
History of Gitelman syndrome
Acute asymptomatic bradycardia
Recent sinus pressure
Migraine headaches
Consults: Nephrology
Hospital course:
29-year-old female with a past medical history Gitelman syndrome, fibromyalgia, POTS disease, restless leg syndrome, gastroesophageal reflux disease, and premature ovarian failure was admitted for acute hypokalemia, hyponatremia, and hypomagnesemia.
Patient reports that she recently stopped taking her liquid IV electrolyte packets. Upon admission, her sodium was 128, potassium 2.9, and magnesium 1.4. She was seen in conjunction with nephrology. Her electrolytes were repleted, and she
received IV fluids. By the following day, her muscle cramps and fogginess resolved. Her electrolytes normalized, and she felt back to normal. She is medically stable for discharge. She has been counseled to resume her electrolyte packets. She
needs to follow-up with her PCP in 1 week, and have her electrolytes rechecked at that time.
Disposition: Home self-care
Discharge planning: Required 33 minutes
Discharge Plan
-
Patient Disposition: Home (Routine Discharge)
Discharge Diagnosis/Procedures: Hypokalemia, hypomagnesemia, hyponatremia
Condition: Good
Diet: Regular
Activity: As tolerated
Driving Restrictions: As prior to admission
Blood Work: BMP, Mg level with PCP in 1 week
Activity Restrictions/Additional Instructions:
Please continue taking your electrolyte packets, and follow-up with your PCP in 1 week.
Referrals:
Yamilex Mcfarland PA-C [Family Provider, Family Practice] - in one week
Prescriptions:
Continued
therapeutic multivitamin Tablet
1 tab PO DAILY
ferrous sulfate 325 mg (65 mg iron) Tablet
325 mg PO DAILY
chlorpheniramine-pseudoephed 2-30 mg/5 mL Liquid
10 ml PO DAILYPRN PRN (Reason: cold)
loratadine [Claritin] 10 mg Tablet
10 mg PO DAILY
Visbiome 112.5 billion cell Capsule
1 cap PO DAILY
omega 3-bsu-exa-fish oil [Fish Oil] 1,000 (120-180) mg Capsule
2 cap PO DAILY
Discharge Orders:
Discharge Patient (As Directed); Ordered 03/24/25
Ordered By: Damaso Chavez
Discharge Date and Time
Discharge Date/Time: 03/24/25 12:12
Print Language: MAURITIAN
--- NOTE | 2025-03-24 11:31 | CM ---
Pt cleared for discharge to home today.
No discharge planning needs identified.
Parents will provide transport home.
== END 2025-03-24 12:12 | disposition home or self-care (01) ==
LOC: 3 WEST ACU 15:53
PROVIDERS: Clinical Nurse Specialist Family Health; Nurse Practitioner; ADMITTING PHYSICIAN Hospitalist; ATTENDING PHYSICIAN Family Medicine; EMERGENCY PHYSICIAN Emergency Medicine; FAMILY PHYSICIAN Physician Assistant Medical; OTHER PHYSICIAN Internal Medicine
DX: R41.0 Disorientation, unspecified (principal); E87.6 Hypokalemia; E87.1 Hypo-osmolality and hyponatremia; E83.42 Hypomagnesemia; G90.A Postural orthostatic tachycardia syndrome [POTS]; E87.8 Other disorders of electrolyte and fluid balance, not elsewhere classified; M79.7 Fibromyalgia; G25.81 Restless legs syndrome; R00.1 Bradycardia, unspecified; R42 Dizziness and giddiness; N15.8 Other specified renal tubulo-interstitial diseases; F32.A Depression, unspecified; I10 Essential (primary) hypertension; E06.3 Autoimmune thyroiditis; F41.9 Anxiety disorder, unspecified; G43.909 Migraine, unspecified, not intractable, without status migrainosus; R10.9 Unspecified abdominal pain; D50.9 Iron deficiency anemia, unspecified; Q27.9 Congenital malformation of peripheral vascular system, unspecified; N17.9 Acute kidney failure, unspecified; K21.9 Gastro-esophageal reflux disease without esophagitis; E28.39 Other primary ovarian failure; L30.9 Dermatitis, unspecified; Z79.890 Hormone replacement therapy; Z90.49 Acquired absence of other specified parts of digestive tract; Z82.49 Family history of ischemic heart disease and other diseases of the circulatory system; Z88.8 Allergy status to other drugs, medicaments and biological substances; Z88.0 Allergy status to penicillin; Z88.2 Allergy status to sulfonamides; Z87.19 Personal history of other diseases of the digestive system; Z96.653 Presence of artificial knee joint, bilateral; Z91.048 Other nonmedicinal substance allergy status; Z11.52 Encounter for screening for COVID-19; Z60.2 Problems related to living alone
CPT/HCPCS: 70450; 80048; 80053; 81003; 83735; 84132; 84703; 85025; 87070; 87502; 87811; 93005; 96365; 96366; 96375; 99285; G0378

== ENCOUNTER 2025-03-29 01:54 | Emergency (ER) | payer MEDICARE, OTHER, SELFPAY ==
[2025-03-29 02:01] VITALS: BP 119/72
[2025-03-29 03:53] VITALS: BMI 24.9
[2025-03-29 03:55] VITALS: BP 98/63
--- NOTE | 2025-03-29 04:22 | ED.GENMED ---
ED Provider Triage
<Yasir Ronquillo MD, Resident - Last Filed: 03/29/25 05:10>
-
Patient seen by provider in Triage?: Seen in Triage
History of Present Illness
<Yasir Ronquillo MD, Resident - Last Filed: 03/29/25 05:10>
General
Chief Complaint: Heart Rate Problem
Source: patient and family (mother)
Exam Limitations: none
Time Seen by Provider: 03/29/25 03:52
History of Present Illness
History of Present Illness:
29-year-old female with a past medical history of Gitelman syndrome, Who presents with headaches and palpitations since today at 1:30 AM. Headaches are described as frontal to the back without aura. Palpitations she has had 1-2 episodes that last
for approximately a minute or less. No lightheadedness, fainting, chest pain, dyspnea, numbness/tingling/weakness of extremities, abdominal pain. Does not use diuretics, no recent history of nausea/vomiting, diarrhea stimulants or excessive
alcohol use. She had similar presentation to [facility] last week where they found she had hypokalemia, hyponatremia, and hypomagnesemia. She was discharged with instructions to have electrolyte packets and be liberal with her sodium
intake. She states that when she was diagnosed with Gitelman syndrome a couple years ago, she was inconsistent with her usage of electrolyte packets, drinking plenty of water, and intake of sodium however recently before her last admission to dose
time she was not consistent with her regiment. Since her discharge last Monday she has been consistent so she doesn't understand why she is still having palpitations. .she sees Dr. Boateng her [employer] libr[employer].
Past History
<Yasir Ronquillo MD, Resident - Last Filed: 03/29/25 05:10>
Past History
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
hypokalemia); Negative Asthma, HTN, Hypercholesterolemia or NIDDM
ED Past Surgical History: Appendectomy and Other
Social History
Tobacco: Non-smoker
Alcohol: Occasional
Drug: None
Personal: Single
Living: with family
Employment: Not employed
Family History
Family History: CAD and Other
Review of Systems
<Yasir Ronquillo MD, Resident - Last Filed: 03/29/25 05:10>
Review of Systems
All Other Systems: ROS reviewed and negative except as documented in HPI and ROS
Phy Exam
<Yasir Ronquillo MD, Resident - Last Filed: 03/29/25 05:10>
General Physical Exam
General Presentation: well appearing and no apparent distress
General Skin: warm
General Habitus: normal
General Mental: alert
Cardiovascular Exam
Cardiovascular Exam: regular rate/rhythm and no edema
Pulmonary Exam
Pulmonary Exam: lungs clear and no respiratory distress
Gastrointestinal Exam
Gastrointestinal Exam: normal bowel sounds, non tender, soft and non distended
Neurological Exam
Neurological Exam: alert and oriented x3
Musculoskeletal Exam
Musculoskeletal Exam: full ROM
Psychiatric Exam
Psychiatric Exam: normal mood/affect
Course
<Yasir Ronquillo MD, Resident - Last Filed: 03/29/25 05:10>
Orders/Labs/Results
Orders:
Orders
03/29/25 03:38
Electrocardiogram (*1) Urgent
Reason for Study: Other
Other Reason for Exam: Respiratory Distress
Cardiac Monitoring- Treatment ONCE
EKG- Treatment ONCE
IV Insert/Care/Rem.- Treatment PRN
Test Result ONCE
CR Chest - 2 Views Urgent
Comment:
Reason For Exam: respiratory distress
O2 Therapy [RESP] Urgent
Titrate/Wean O2 to maintain O2 sat greater than (%): 93
Special Instructions: TO MAINTAIN CONTINUOUS O2 SATS >/= 93%
Pulse Ox/cont/shift [RESP] Urgent
Quantity: 1
Special Instructions: continuous pulse ox
03/29/25 04:13
Comprehensive Metabolic Panel Urgent
HCG, Serum Qualitative Screen Urgent
Comment: Notify provider if positive test present
Magnesium Urgent
NT-proBNP Urgent
Abnormal Lab Results
03/29/25
04:13
BUN 22 H mg/dl
(7-17)
03/29/25 03:38
03/29/25 04:13
Vital Signs
Initial and Last Documented VS:
Initial Vital Signs
Temp Pulse Resp BP Pulse Ox
97.5 F 47 16 119/72 99
03/29/25 02:01 03/29/25 02:01 03/29/25 02:01 03/29/25 02:01 03/29/25 02:01
Last Documented Vital Signs
Temp Pulse Resp BP Pulse Ox
97.5 F 53 20 105/72 100
03/29/25 02:01 03/29/25 04:58 03/29/25 04:58 03/29/25 04:58 03/29/25 04:58
<Andreina Bonilla, DO - Last Filed: 03/29/25 05:00>
Orders/Labs/Results
Orders:
Orders
03/29/25 03:38
Electrocardiogram (*1) Urgent
Reason for Study: Other
Other Reason for Exam: Respiratory Distress
Cardiac Monitoring- Treatment ONCE
EKG- Treatment ONCE
IV Insert/Care/Rem.- Treatment PRN
Test Result ONCE
CR Chest - 2 Views Urgent
Comment:
Reason For Exam: respiratory distress
O2 Therapy [RESP] Urgent
Titrate/Wean O2 to maintain O2 sat greater than (%): 93
Special Instructions: TO MAINTAIN CONTINUOUS O2 SATS >/= 93%
Pulse Ox/cont/shift [RESP] Urgent
Quantity: 1
Special Instructions: continuous pulse ox
03/29/25 04:13
Comprehensive Metabolic Panel Urgent
HCG, Serum Qualitative Screen Urgent
Comment: Notify provider if positive test present
Magnesium Urgent
NT-proBNP Urgent
Abnormal Lab Results
03/29/25
04:13
BUN 22 H mg/dl
(7-17)
03/29/25 03:38
03/29/25 04:13
Vital Signs
Initial and Last Documented VS:
Initial Vital Signs
Temp Pulse Resp BP Pulse Ox
97.5 F 47 16 119/72 99
03/29/25 02:01 03/29/25 02:01 03/29/25 02:01 03/29/25 02:01 03/29/25 02:01
Last Documented Vital Signs
Temp Pulse Resp BP Pulse Ox
97.5 F 53 20 105/72 100
03/29/25 02:01 03/29/25 04:58 03/29/25 04:58 03/29/25 04:58 03/29/25 04:58
<Yasir Ronquillo MD, Resident - Last Filed: 03/29/25 05:10>
MDM/Problems Addressed
Differential Diagnosis Includes:
A-fib, PAC, PVC, caffeine/stimulant usage, hyperthyroidism
MDM/Problems Addressed:
- CMP, CBC, pro bnp, hcg- unremarkable
- EKG shows sinus bradycardia
- Chest xray is negative
Discharge patient home with instructions to f/u with university librarian in 5 days. Advised her to drink lots of water, use electrolyte packets, and to be liberal with sodium intake.
<Yasir Ronquillo MD, Resident - Last Filed: 03/29/25 05:10>
*Pulse Oximetry
SaO2: 99
Oxygen Mode of Delivery: Room air
Patient hypoxic: no
*Critical Care Note
Total Time (30-74mins, 75-104mins- exclusive of procedures): Not Applicable
ED Attending Note
<Yasir Ronquillo MD, Resident - Last Filed: 03/29/25 05:10>
-
Portions of this chart may have been created with voice recognition software.� Occasional wrong word or��sound alike� substitutions may have occurred due to the inherent limitations of voice recognition software.
<Andreina Bonilla DO - Last Filed: 03/29/25 05:00>
ED Attending Note
Patient seen and examined by attending physician: Yes
I performed a history and physical exam of patient and discussed management with resident, I reviewed resident's note and agree with documented findings and plan of care.: Yes
ED Attending Note:
This is a 29-year-old female with Gettleman syndrome, hypothyroidism, POTS, GERD, migraine headaches who was hospitalized overnight March 23 to March 24 when she presented with 1 week history of generalized fatigue, muscle cramps, headache,
fogginess. Found to be hyponatremic as well as hypokalemic and hypomagnesemic. She had inadvertently discontinued her electrolyte packets for a week prior to that hospitalization. She exercises on a regular basis and generally replete her
electrolytes with electrolyte packets and attempts to stay well-hydrated.
Electrolytes were repleted IV and she was discharged the following day and recommended to resume her electrolyte packets which she has been compliant with.
Tonight, she noted intermittent palpitations and was concerned for recurrent electrolyte abnormality. She admits that she has had no return of muscle cramps, no return of headache. No dizziness nor lightheadedness. No chest pain.
She has followed with cardiology, Dr. Garibay. She states last Holter monitor was several years ago.
29-year-old female appears her stated age, awake and alert, pleasant, appears in no acute distress.
HEENT: Oral mucosa is moist.
Neck is supple, nontender.
Heart is regular rate and rhythm at a rate of 50. No ectopy.
Lungs are clear to auscultation.
Abdomen is soft without appreciable tenderness.
Extremities without clubbing or cyanosis no edema. Peripheral pulses are full and equal.
Skin is warm and dry, normal color. Good turgor.
No focal neurodeficits. Gait is gupta and steady.
Concern for recurrent electrolyte abnormality, cardiac arrhythmia, exacerbation of POTS.
Overall well in appearance.
EKG shows sinus bradycardia otherwise unremarkable and unchanged from previous 1 week ago.
Labs are unremarkable, normal electrolytes. BUN minimally elevated with normal creatinine 0.6. Magnesium is normal at 2.1. hCG is negative.
school lunch monitor continues to show sinus bradycardia without ectopy. She remains hemodynamically stable without orthostasis and is ambulatory to and from the bathroom without difficulty and without symptomatology.
Discussed importance of staying well-hydrated on a daily basis and to continue electrolyte packets as well as continue to be liberal with sodium intake.
Due to palpitations patient may have intermittent arrhythmia such as a PVC or PAC which has not been captured on security monitor nor EKG. As such recommend she follow-up with her primary university librarian, Dr. Garibay.
Return precautions discussed.
Discharge Plan
Departure
Patient Disposition: Home (Routine Discharge)
Date of Disposition: 03/29/25
Time of Disposition: 04:54
Patient with high blood pressure during this ER visit?: No
Condition: Good
Discharge Problem:
Heart palpitations
Instructions: Palpitations (DC)
Prescriptions:
No Action
therapeutic multivitamin Tablet
1 tab PO DAILY
ferrous sulfate 325 mg (65 mg iron) Tablet
325 mg PO DAILY
chlorpheniramine-pseudoephed 2-30 mg/5 mL Liquid
10 ml PO DAILYPRN PRN (Reason: cold)
loratadine [Claritin] 10 mg Tablet
10 mg PO DAILY
Visbiome 112.5 billion cell Capsule
1 cap PO DAILY
omega 3-dwa-lfn-fish oil [Fish Oil] 1,000 (120-180) mg Capsule
2 cap PO DAILY
Referrals:
Yamilex Mcfarland PA-C [Family Provider, Family Practice]
Mars Garibay MD [Active, Cardiology] - Call in 1-3 days for appt
Interventions
Interventions:
*Risk Screen - Suicide Last Done: 03/29/25 02:01
*Neglect/Abuse Screening Last Done: 03/29/25 04:14
*ED- Fall Risk Assessment Last Done: 03/29/25 02:01
*ED COVID-19 Vaccine History Last Done: 03/29/25 02:01
*ED Influenza Vaccine History Last Done: 03/29/25 02:01
ED- Cardiac Assessment Last Done: 03/29/25 03:57
ED- Pulmonary Assessment Last Done: 03/29/25 03:57
Discharge Date and Time
Print Language: SYRIAC
[2025-03-29 04:37] LABS: HCG, Serum Qualitative Screen Negative
[2025-03-29 04:39] LABS: ALT (SGPT) 15 U/L (0-35); AST (SGOT) 19 U/L (14-36); Albumin 4.1 g/dl (3.5-5.0); Alkaline Phosphatase 38 U/L (38-126); Blood Urea Nitrogen 22 mg/dl (7-17); Calcium 8.8 mg/dl (8.4-10.2); Carbon Dioxide 27 mmol/L (22-30); Chloride 106 mmol/L (98-107); Estimated Creatinine Clearance > 125 ml/min; Glucose 91 mg/dl (70-99); Magnesium 2.1 mg/dl (1.6-2.3); Potassium 3.9 mmol/L (3.5-5.1); Sodium 138 mmol/L (135-145); Total Protein 6.4 g/dl (6.3-8.2); eGFR > 60.00
[2025-03-29 04:58] VITALS: BP 105/72
== END 2025-03-29 04:45 | disposition home or self-care (01) ==
LOC: EMR 01:54
PROVIDERS: EMERGENCY PHYSICIAN Emergency Medicine; FAMILY PHYSICIAN Physician Assistant Medical
DX: R00.2 Palpitations (principal); R00.1 Bradycardia, unspecified; G90.A Postural orthostatic tachycardia syndrome [POTS]; N15.8 Other specified renal tubulo-interstitial diseases; E06.3 Autoimmune thyroiditis; K21.9 Gastro-esophageal reflux disease without esophagitis; M79.7 Fibromyalgia; G43.909 Migraine, unspecified, not intractable, without status migrainosus; F41.9 Anxiety disorder, unspecified; F32.A Depression, unspecified
CPT/HCPCS: 99284; 71046; 80053; 83735; 83880; 84703; 93005

== ENCOUNTER → 2025-04-29 12:41 | Outpatient (REF) | payer MEDICARE, OTHER, SELFPAY | LOC: RCS 12:41 | PROVIDERS: ATTENDING PHYSICIAN Internal Medicine Cardiovascular Disease; FAMILY PHYSICIAN Physician Assistant Medical | DX: R00.2 Palpitations (principal); R00.1 Bradycardia, unspecified; N15.8 Other specified renal tubulo-interstitial diseases; E87.6 Hypokalemia; E87.1 Hypo-osmolality and hyponatremia | CPT/HCPCS: 93225; 93226 ==

== ENCOUNTER → 2025-05-09 07:04 | Outpatient (REF) | payer MEDICARE, OTHER, SELFPAY | LOC: HWRCS 07:04 | PROVIDERS: ATTENDING PHYSICIAN Internal Medicine Cardiovascular Disease; FAMILY PHYSICIAN Physician Assistant Medical | DX: R00.2 Palpitations (principal); N15.8 Other specified renal tubulo-interstitial diseases; E87.6 Hypokalemia; E87.1 Hypo-osmolality and hyponatremia; R00.1 Bradycardia, unspecified | CPT/HCPCS: 93306 ==